=== PATIENT | female | born 2000 | race American Indian/Alaskan Native ===

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

== ENCOUNTER 2020-12-10 11:06 | Outpatient (CLI) | payer MEDICAID ==
[2020-12-10 12:31] VITALS: BP 121/58
[2020-12-10 12:31] LABS: Bilirubin,Urine NEG (Negative); Blood,Urine NEG (Negative); Color,Urine Yellow (Yellow); Protein,Urine <15 mg/dL mg/dL (Negative)
[2020-12-10 12:32] LABS: RBC,Urine < 1.0 /HPF (0.0-6.0)
[2020-12-10] MEDS ORDERED: LACTATED RINGERS 500 ML IV ONE (13:00)
== END 2020-12-10 13:17 | disposition home or self-care (01) ==
LOC: TRG 11:06 → APU 11:12 → TRG 13:17
PROVIDERS: ATTEND Obstetrics & Gynecology
DX: O62.9 Abnormality of forces of labor, unspecified (principal); Z3A.33 33 weeks gestation of pregnancy
CPT/HCPCS: 59025; 81001; 96360; J7120

== ENCOUNTER 2021-01-15 04:58 | Observation (INO) | payer MEDICAID ==
[2021-01-15] MEDS ORDERED: hydrOXYzine HCL 100 MG/2 ML INJ IM ONE (06:16)
[2021-01-15 08:26] LABS: Bacteria,Urine 1+ /HPF (Negative); Bilirubin,Urine NEG (Negative); Blood,Urine NEG (Negative); Color,Urine Yellow (Yellow); Mucus,Urine FEW /HPF; Protein,Urine <15 mg/dL mg/dL (Negative); WBC,Urine < 1.0 /HPF (0.0-6.0)
[2021-01-15 08:44] VITALS: BP 118/57
== END 2021-01-15 09:00 | disposition home or self-care (01) ==
LOC: TRG 04:58 → APU 05:02 → TRG 05:39
PROVIDERS: ADMIT Obstetrics & Gynecology; ATTEND Obstetrics & Gynecology
DX: O62.9 Abnormality of forces of labor, unspecified (principal); O26.893 Other specified pregnancy related conditions, third trimester; R51.9 Headache, unspecified; O99.333 Smoking (tobacco) complicating pregnancy, third trimester; F17.200 Nicotine dependence, unspecified, uncomplicated; Z3A.38 38 weeks gestation of pregnancy
CPT/HCPCS: 81001; 96372; G0378; J3410

== ENCOUNTER 2021-01-18 14:45 | Outpatient (CLI) | payer MEDICAID ==
[2021-01-18 16:42] VITALS: BP 144/86
== END 2021-01-18 16:49 | disposition home or self-care (01) ==
LOC: TRG 14:45 → APU 14:47 → TRG 16:49
PROVIDERS: ATTEND Obstetrics & Gynecology
DX: Z34.93 Encounter for supervision of normal pregnancy, unspecified, third trimester (principal); Z3A.38 38 weeks gestation of pregnancy
CPT/HCPCS: 59025